=== PATIENT | female | born 2000 | race Caucasian/White ===

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

== ENCOUNTER 2018-05-24 10:13 | Emergency (ER) | payer OTHER ==
--- NOTE | 2018-05-24 10:19 | EDPHY ---
H & P Stated Complaint: Slipped on wet tile Thursday night;hit head;no LOC;sent from [facility] for eval Time Seen by Provider: 05/24/18 10:18 - Personal History LMP (Females 10-55): IUD In Place Current Tetanus Diphtheria and Acellular Pertussis (TDAP): Yes - Medical/Surgical History Hx Asthma: No Hx Chronic Respiratory Disease: No Hx Diabetes: No Hx Cardiac Disease: No Hx Renal Disease: No Hx Cirrhosis: No Hx Alcoholism: No Hx HIV/AIDS: No Hx Splenectomy or Spleen Trauma: No Other PMH: denies - Social History Smoking Status: Never smoked Constitutional: Initial Vital Signs Temperature (C) 36.9 C 05/24/18 10:13 Heart Rate 79 05/24/18 10:13 Respiratory Rate 16 05/24/18 10:13 Blood Pressure 140/96 H 05/24/18 10:13 O2 Sat (%) 95 05/24/18 10:13 O2 Delivery Mode Room Air Allergies/Adverse Reactions: Latex, Natural Rubber Allergy (Mild, Verified 05/24/18 10:17) Rash Home Medications: Medication Instructions Recorded Levonorgestrel [Mirena] 1 each IY 05/24/18 Medical Decision Making - Diagnostics Imaging Results: Imaging Impressions Head CT 05/24/18 10:19 Impression: 1. Small frontal scalp hematoma. No acute fracture. 2. Normal brain. No acute intracranial hemorrhage or swelling. 3. Mild left maxillary and ethmoid sinus disease. Findings discussed with Emergency Department physician, Michael Lewis MD on at 11:13 a.m. Imaging: Discussed imaging studies w/ director call center sales Radiologist, I viewed and interpreted images myself ED Course/Re-evaluation: CHIEF COMPLAINT: Head injury HISTORY OF PRESENT ILLNESS: The patient is a 17 y/o female arriving from [facility] for evaluation of a head injury suffered 2 days ago. On Thursday she tripped on wet tile and struck her forehead on the ground. She remembers slipping and then waking up the next morning. Friends told her she did not lose consciousness, but she does not remember anything after the slipping portion. She denies alcohol use or other intoxicants. She went to [facility] this morning for evaluation and was referred to the ED for head CT. She is normally healthy and denies any other complaints including vomiting, weakness, paresthesias, vision changes, or speech difficulty. REVIEW OF SYSTEMS: A comprehensive 10 system review of systems is otherwise negative aside from elements mentioned in the history of present illness and medical decision making. PHYSICAL EXAM: HR, BP, O2 Sat, RR. Temp noted General Appearance: Alert, well hydrated, appropriate, and non-toxic appearing. Head: Forehead hematoma with overlying healing abrasion, otherwise atraumatic without scalp tenderness or obvious injury Eyes: Pupils equal, round, reactive to light and accommodation, EOMI, dependent periorbital edema and ecchymosis, no injection. Ears: Clear bilaterally, no perforation, normal landmarks Nose: Atraumatic, no rhinorrhea, clear. Throat: Mucus membranes moist. Neck: Supple, nontender, no lymphadenopathy. Respiratory: No retractions, no distress, no wheezes, and no accessory muscle use. Lungs are clear to auscultation bilaterally. Cardiovascular: Regular rate and rhythm, no murmurs, rubs, or gallops. Good capillary refill all extremities. Gastrointestinal: Abdomen is soft, nontender, non-distended, no masses, no rebound, no guarding, no peritoneal signs. Musculoskeletal: Normal active ROM of all extremities, atraumatic. Neurological: Alert, appropriate, and interactive. The patient has non-focal cranial nerves, motor, sensory, and cerebellar exam. Skin: No rashes, good turgor, no nodules on palpation. Past medical history: Denies Past surgical history: Denies Family history: Noncontributory Social history: [employer] student. Single. From [place]. DIAGNOSTICS/PROCEDURES/CRITICAL CARE TIME: Head CT: negative for acute intracranial process DIFFERENTIAL DIAGNOSIS: The differential diagnosis for the patient's head injury included but was not limited to concussion, skull fracture, intra- parenchymal contusion, subarachnoid, subdural and epidural hematoma. MEDICAL DECISION MAKING: This is a healthy 17 y/o female who presents 2 days out from a head injury for evaluation. She had a mechanical fall that caused her to strike her forehead on the ground. She has anterograde amnesia following the event, though friends say she did not lose consciousness. She has a persisting frontal hematoma and associated dependent periorbital edema and ecchymosis. She has a nonfocal neuro exam. CT head imaging is negative for intracranial process. She will be discharged with standard care and follow up instructions. Referral to head injury specialist provided if needed for persistent symptoms. Return precautions discussed. She is comfortable with this plan. Departure - Departure Disposition: Home, Routine, Self-Care Clinical Impression: Concussion Qualifiers: Encounter type: initial encounter Loss of consciousness presence/duration: without LOC Qualified Code(s): S06.0X0A - Concussion without loss of consciousness, initial encounter Head injury Qualifiers: Encounter type: initial encounter Qualified Code(s): S09.90XA - Unspecified injury of head, initial encounter Condition: Good Instructions: Concussion (ED) Additional Instructions: Follow up with Dr. Vance, head injury specialist, for any continuing concussion symptoms over the next week. Return to the ED for any worsening of condition. Referrals: Amy Vance MD [Medical Doctor] - As per Instructions Stand Alone Forms: School Excuse Report Scribed for: Michael Lewis Report Scribed by: Soledad Gary Date of Report: 05/24/18 Time of Report: 11:04
[2018-05-24 11:18] VITALS: BP 124/80
== END 2018-05-24 11:18 | disposition home or self-care (01) ==
DX: S06.0X0A Concussion without loss of consciousness, initial encounter (principal); W01.198A Fall on same level from slipping, tripping and stumbling with subsequent striking against other object, initial encounter

== ENCOUNTER 2018-06-02 18:12 | Emergency (ER) | payer OTHER ==
[2018-06-02] MEDS ORDERED: NS 1,000 ML IV ONE (19:13)
[2018-06-02 19:23] LABS: PLATELET COUNT 321 10^3/uL (150-400)
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
[2018-06-02] MEDS ORDERED: IOPAMIDOL (ISOVUE-300) 100 ML BTL ONE (19:35)
[2018-06-02 20:24] VITALS: BP 108/80
== END 2018-06-02 20:54 | disposition home or self-care (01) ==
DX: N30.00 Acute cystitis without hematuria (principal); E86.9 Volume depletion, unspecified; Z91.040 Latex allergy status
CPT/HCPCS: 96365; J0696; Q9967

== ENCOUNTER 2018-12-14 20:45 | Emergency (ER) | payer OTHER ==
[2018-12-14] MEDS ORDERED: HYDROCODONE/APAP 5/325 TAB PO ONE (22:24)
[2018-12-14 23:03] VITALS: BP 118/74
[2018-12-14] MEDS ORDERED: HYDROCOD/APAP 5/325 PREPACK#6 BTL TAKEHOME ONE (23:06)
--- NOTE | 2018-12-14 23:07 | EDPHY ---
General Time Seen by Provider: 12/14/18 20:58 Narrative: CLINICAL IMPRESSION: Left knee injury ASSESSMENT/PLAN: 18-year-old female presents to the emergency department with acute left knee pain after feeling a pop while bending the knee to retrieve something under a desk earlier today. No prior knee injury orthopedic procedure. No obvious joint effusion. Patient is unable to extend the knee and hold the knee flexed at 90 degrees. I am unable to perform Benedict testing. She has no laxity with anterior drawer testing. X-ray show no evidence of acute dislocation, fracture or bony abnormality. There is no significant swelling to popliteal space. Distal neurovascular exam is intact. She does not have clinical evidence to suggest an acute knee dislocation. I cannot rule out reduced patellar dislocation. I also cannot rule out meniscus or ligamentous injury. I have encouraged her to follow up with Orthopedics and referral was given. School note given to excuse from classes tomorrow. Pain meds prescribed. Warning signs return to ED sooner discussed discharge. DIFFERENTIAL DX: Differential includes but not limited to acute fracture, strain/sprain, joint dislocation, soft tissue contusion ED PROCEDURES: Crutches provided ED COURSE: X-rays negative for acute bony abnormality CHIEF COMPLAINT: Left knee pain HPI: 18-year-old female presents to the emergency department with acute left knee pain. Patient reports she was bending down to plug in her computer under a desk when she felt a pop in the knee. She states she had to extend the knee to pop it back in place. She does not report seeing a deformity to the knee. She has had some catching sensations to the knee over the last couple weeks. No reported prior knee injury or surgery. No history of patellar dislocation. No lower leg, hip, ankle or foot pain. PAST MEDICAL HISTORY: No significant past medical history orthopedic history reported REVIEW OF SYSTEMS: All other systems negative Constitutional: No fever, no chills Musculoskeletal: No deformity, + joint pain Skin: No rashes, color change or open wounds. Neurological: No sensory loss or weakness. PHYSICAL EXAM: General Appearance: Alert, oriented, appropriate for age, cooperative, NAD, well hydrated, vital signs stable, appears uncomfortable, tearful Neurological: Alert and oriented x 3, normal sensation of extremities Skin: Warm, dry, no rashes, no nodules on palpation. Musculoskeletal: Unable to extend the left knee. Holds knee in flexion at 90 degrees. Negative anterior drawer test. Unable to perform Benedict testing. No reproducible femur, lower leg ankle or foot pain. Distal neurovascular exam intact. MEDICAL DECISION MAKING: Patient was seen independently. Secondary supervising physician at time of evaluation was Dr. Hammer . Diagnosis: Acute left knee injury. New, requires workup Summary: See assessment and plan for summary of ED visit Independent visualization of images, tracing, or specimens yes. Patient Progress: Stable for discharge. - Diagnostics Imaging Results: Imaging Impressions Knee X-Ray 12/14/18 21:28 Impression: No fracture or dislocation of the left knee. - History Smoking Status: Never smoked - Objective Vital Signs: Initial Vital Signs Temperature (C) 36.7 C 12/14/18 20:51 Heart Rate 100 12/14/18 20:51 Respiratory Rate 20 12/14/18 20:51 Blood Pressure 146/91 H 12/14/18 20:51 O2 Sat (%) 97 12/14/18 20:51 O2 Delivery Mode Room Air Allergies/Adverse Reactions: Latex, Natural Rubber Allergy (Mild, Verified 12/14/18 20:51) Rash Home Medications: Medication Instructions Recorded Levonorgestrel [Mirena] 1 each IY 05/24/18 Cephalexin [Keflex] 500 mg PO TID #21 cap 06/02/18 Flexeril 10 MG (*) 06/02/18 Phenazopyridine HCl [Pyridium] 200 mg PO TID #6 tab 06/02/18 Hydrocodone/APAP 5/325 [[place] 1 - 2 tab PO Q4H PRN #10 tab 12/14/18 5/325 (*)] Medications Given: Discontinued Medications Hydrocodone Bitart/Acetaminophen ([place] 5/325) 2 tab PO EDNOW ONE Stop: 12/14/18 22:25 Last Admin: 12/14/18 22:30 Dose: 2 tab Hydrocodone Bitart/Acetaminophen ([place] 5/325mg Prepack#6) 1 btl TAKEHOME EDNOW ONE Stop: 12/14/18 23:07 Last Admin: 12/14/18 23:18 Dose: 1 btl Departure - Departure Disposition: Home, Routine, Self-Care Clinical Impression: Knee pain, left Condition: Good Instructions: Hydrocodone/Acetaminophen (By mouth), Knee Pain (ED) Additional Instructions: DISCHARGE INSTRUCTIONS FROM YOUR DOCTOR Thank you for visiting our emergency department today. You were treated by a physician metal forger's assistant today and your case was reviewed with our ED Attending physician. Please keep in mind that discharge from the emergency department does not mean that there is nothing wrong - it simply means that we have not identified an emergency condition that requires further evaluation or treatment in the hospital. You should always plan to follow up with primary care for re- evaluation of your condition in the next 2-3 days. If you have been referred to a specialist, please call as soon as possible (today or tomorrow) to schedule your follow up appointment at the appropriate time. PLEASE FOLLOW-UP WITH ORTHOPEDICS IN 1-2 DAYS. PLEASE CALL FOR AN APPOINTMENT. X-RAY SHOWED NO EVIDENCE OF ACUTE FRACTURE OR DISLOCATION. USE IBUPROFEN AND PAIN MEDICATION IF NEEDED. REST AND ELEVATE THE AFFECTED EXTREMITY MUCH POSSIBLE. ICE THE AFFECTED AREAS 20 MIN ON, 20 MIN OFF FOR THE NEXT SEVERAL DAYS. DO NOT DRIVE OR DRINK ALCOHOL WHILE TAKING NARCOTIC PAIN MEDICATION. PLEASE BE AWARE, NARCOTICS CAN CAUSE CONSTIPATION, LETHARGY, AND INCREASE YOUR RISK OF FALLING. DO NOT TAKE TYLENOL AT THE SAME TIME VICODIN OR PERCOCET. RETURN TO EMERGENCY DEPARTMENT IMMEDIATELY FOR SEVERE PAIN OR SWELLING, LOSS OF SENSATION TO LOWER LEG, FEVER OR ANY OTHER CONCERN. People present with illnesses and injuries in different ways, and it is always possible that we have missed something. You may always return for re-evaluation if symptoms worsen or if they are not improving or if you develop new/different symptoms. Again, thank you for choosing our emergency department. We hope that you feel better. Referrals: NONE *PRIMARY CARE P,. [Primary Care Provider] - As per Instructions Jean-Paul Siegel MD [Medical Doctor] - 1-2 days without fail Stand Alone Forms: School Excuse Prescriptions: Hydrocodone/APAP 5/325 [[place] 5/325 (*)] 1 - 2 tab PO Q4H PRN #10 tab PRN Reason: Pain, Moderate
== END 2018-12-14 23:28 | disposition home or self-care (01) ==
DX: M25.562 Pain in left knee (principal)